=== PATIENT | male | born 1970 | race Two or more races ===

== ENCOUNTER 2019-04-21 06:54 | Day surgery (SDC) | payer OTHER ==
[~2019-04-21 06:54] MED LIST: AMLODIPINE BESY10 MG PO; ATACAND HCT 321 EACH PO; CARVEDILOL ER40 MG PO; CRESTOR20 MG PO; DICYCLOMINE HCL20 MG PO; ENALAPRIL MALEA20 MG PO; FENOFIBRATE120 MG PO; METFORMIN HCL500 MG PO
[2019-04-21] MEDS ORDERED: PERCOCET 5-3251 EACH PO ×2 (11:26)
[2019-05-05] MEDS ORDERED: ULTRACET PO ×2 (08:07)
== END 2019-04-21 13:35 | disposition home or self-care (01) ==
LOC: CIR.AMB 06:54
DX: R15.9 Full incontinence of feces (principal)
CPT/HCPCS: 64581; C1778

== ENCOUNTER 2019-05-05 05:45 | Day surgery (SDC) | payer OTHER ==
[~2019-05-05 05:45] MED LIST changes: +PERCOCET 5-3251 EACH PO
[2019-05-05] MEDS ORDERED: ULTRACET PO (08:07)
== END 2019-05-05 10:45 | disposition home or self-care (01) ==
LOC: CIR.AMB 05:45
DX: R15.9 Full incontinence of feces (principal)
CPT/HCPCS: 64590; C1767

== ENCOUNTER 2024-04-28 07:02 | Day surgery (SDC) | payer OTHER ==
[~2024-04-28] VITALS: Ht 185.4 cm; Wt 130.2 kg
[~2024-04-28 07:02] MED LIST changes: +CARDURA1 MG PO; +QUESTRAN LIGHT210 GM PO; +TAMS0.4C PO; +ULTRACET PO
[2024-04-28] MEDS ORDERED: CEFAZOLIN SODIUM 1,000 MG VIAL ONE (10:36)
[2024-04-28] MEDS ORDERED: BUPIVACAINE HCL/MPF 0.5% 30ML VIAL ONE (12:59)
[2024-04-28] MEDS ORDERED: TRAM1TAB98 PO (13:36)
== END 2024-04-28 15:25 | disposition home or self-care (01) ==
LOC: CIR.AMB 07:02
PROVIDERS: ATTEND Surgery
DX: T85.111A Breakdown (mechanical) of implanted electronic neurostimulator of peripheral nerve electrode (lead), initial encounter (principal); T85.113A Breakdown (mechanical) of implanted electronic neurostimulator, generator, initial encounter; R15.9 Full incontinence of feces; K62.89 Other specified diseases of anus and rectum